=== PATIENT | female | born 1955 | race Caucasian/White ===

== ENCOUNTER 2024-02-04 07:37 | Day surgery (SDC) | payer OTHER, BC ==
[2024-02-02 15:30] VITALS: BMI 24.7
[2024-02-04 10:08] VITALS: TEMP 97
[2024-02-04 10:13] VITALS: RESP 18
[2024-02-04 10:14] VITALS: BP 130/64; PULSE 64
== END 2024-02-04 10:19 | disposition home or self-care (01) ==
LOC: FASU-ENDO 07:37
PROVIDERS: ATTEND Internal Medicine Gastroenterology
PROC: 0DJD8ZZ Inspection of Lower Intestinal Tract, Via Natural or Artificial Opening Endoscopic (ICD-10-PCS; principal; 2024-02-04 09:15)
DX: Z12.11 Encounter for screening for malignant neoplasm of colon (principal); K57.30 Diverticulosis of large intestine without perforation or abscess without bleeding; Z86.0100 Personal history of colon polyps, unspecified; Z80.0 Family history of malignant neoplasm of digestive organs